=== PATIENT | male | born 1965 | race Caucasian/White ===

== ENCOUNTER 2020-07-21 16:46 | Emergency (ER) | payer BC, OTHER ==
[2020-07-21] MEDS ORDERED: Diphtheria,Pertussis(Acell),Tetanus Vaccine 0.5 ML Syringe IM ONE (17:16)
[2020-07-21] MEDS ORDERED: Bupivacaine 0.25% 10 ML SDV INJECT ONE (17:16)
--- NOTE | 2020-07-21 17:42 | EDM.PDOC ---
ED HPI GENERAL MEDICAL PROBLEM - General Chief Complaint: Laceration Stated Complaint: "CUT MY FINGER" Time Seen by Provider: 07/21/20 17:13 Source of Information: Reports: Patient History Limitations: Reports: No Limitations - History of Present Illness INITIAL COMMENTS - FREE TEXT/NARRATIVE: This patient is a 55 year old male that presents to the ER. Patient reports that today he was using his hands and bolt caught his right 2nd finger and cut it. Patient denies other injuries. Onset: Today Onset Date: 07/21/20 Duration: Hour(s): (1) Location: Reports: Upper Extremity, Right Severity: Mild Improves with: Reports: None Worsens with: Reports: None Associated Symptoms: Reports: No Other Symptoms Right Finger-Index Pain Score (Numeric/FACES): 1 - Related Data Allergies Allergy/AdvReac Type Severity Reaction Status Date / Time Sulfa (Sulfonamide Allergy Hives Verified 07/21/20 17:55 Antibiotics) Home Meds: Home Meds Empagliflozin [Jardiance] 10 mg PO DAILY 07/21/20 [History] Levothyroxine 1 tab PO DAILY 07/21/20 [History] Liraglutide [Victoza] 0.6 injection SUBCUT DAILY 07/21/20 [History] Moexipril HCl [Moexipril] 15 mg PO DAILY 07/21/20 [History] Sildenafil [Revatio] 20 mg PO TID 07/21/20 [History] metFORMIN HCl [Metformin HCl ER] 500 mg PO DAILY 07/21/20 [History] ED ROS GENERAL - Review of Systems Review Of Systems: See Below Constitutional: Reports: No Symptoms HEENT: Reports: No Symptoms Respiratory: Reports: No Symptoms Cardiovascular: Reports: No Symptoms Musculoskeletal: Reports: No Symptoms Skin: Reports: Wound (laceration ringer) Neurological: Reports: No Symptoms Psychiatric: Reports: No Symptoms Hematologic/Lymphatic: Reports: No Symptoms ED EXAM, SKIN/RASH Exam: See Below Exam Limited By: No Limitations General Appearance: Alert, WD/WN, No Apparent Distress Head: Atraumatic, Normocephalic Neck: Normal Inspection Respiratory/Chest: No Respiratory Distress, Lungs Clear Cardiovascular: Normal Peripheral Pulses, Regular Rate, Rhythm Peripheral Pulses: 2+: Radial (L), Radial (R) Extremities: Normal Range of Motion, Non-Tender, No Pedal Edema, Normal Capillary Refill Neurological: Alert, Oriented Psychiatric: Normal Affect, Normal Mood Skin: Warm, Dry, Normal Color, No Rash, Wound/Incision (laceration distal tip of right 2nd finger) Location, Skin: Upper Extremity, Right ED SKIN PROCEDURES - Laceration/Wound Repair Right Distal Digit - 2nd (Index) Appearance: Superficial Distal NVT: Neuro & Vascular Intact, No Tendon Injury Anesthetic Type: Local Local Anesthesia - Lidocaine (Xylocaine): 1% Plain (local: achieved) Local Anesthesia - Bupivicaine (Marcaine): 0.25% Plain (block: mildly achieved) Local Anesthetic Volume: 1cc Skin Prep: Chlorhexidine (Hibiciens) Saline Irrigation (cc's): 50 Exploration/Debridement/Repair: Wound Explored, In a Bloodless Field, Explored to Base, Moderate Debridement, No Foreign Material Found, Wound Margins Revised Closed with: Sutures Lac/Wound length In cm: 1 Suture Size: 5-0 # of Sutures: 2 Tetanus Status Addressed: Yes Complications: No Course - Orders/Labs/Meds Orders: Active Orders 24 hr Category Date Time Status Vaccines to be Administered [RC] PER UNIT ROUTINE Care 07/21/20 17:17 Active Meds: Medications Discontinued Medications Generic Name Dose Route Start Last Admin Trade Name Hollandq PRN Reason Stop Dose Admin Bupivacaine HCl 10 ml 07/21/20 17:16 07/21/20 18:19 Sensorcaine-Mpf 0.25% INJECT 07/21/20 17:17 10 ml ONETIME ONE Administration Diphtheria/Tetanus/Acell Pertussis 0.5 ml 07/21/20 17:16 07/21/20 18:10 Adacel IM 07/21/20 17:17 0.5 ml .ONCE ONE Administration Lidocaine HCl 5 ml 07/21/20 17:16 07/21/20 18:18 Xylocaine-Mpf 1% INJECT 07/21/20 17:17 5 ml ONETIME ONE Administration Neomycin/Polymyxin/Bacitracin 1 each 07/21/20 18:33 Triple Antibiotic Oint TOP 07/21/20 18:34 ONETIME ONE Departure - Departure Time of Disposition: 18:35 Disposition: Home, Self-Care 01 Condition: Good Clinical Impression: Laceration - Discharge Information *PRESCRIPTION DRUG MONITORING PROGRAM REVIEWED*: Not Applicable *COPY OF PRESCRIPTION DRUG MONITORING REPORT IN PATIENT DOM: Not Applicable Instructions: Laceration Care, Adult, [id number], Sutures, Santiago, or Adhesive Wound Closure, [id number] Forms: ED Department Discharge Additional Instructions: Followup with primary care provider in about 5 days for suture removal Return to the ER for worsening of condition or any emergent concerns such as fever, vomiting, drainage at site, redness, infection Wash the area gently twice a day with soap and water, rinse, pat dry. Keep clean Tylenol or Motrin for pain - My Orders Last 24 Hours: My Active Orders 07/21/20 17:17 Vaccines to be Administered [RC] PER UNIT ROUTINE - Assessment/Plan Last 24 Hours: My Active Orders 07/21/20 17:17 Vaccines to be Administered [RC] PER UNIT ROUTINE Plan: PLEASE SEE RN NOTE FOR PFSH
[2020-07-21] MEDS ORDERED: Bacitracin/Neomycin/Polymyxin B Oint 0.9 GM U/D Packet TOP ONE (18:33)
== END 2020-07-21 18:56 | disposition home or self-care (01) ==
LOC: CC.ED 16:46
DX: S61.210A Laceration without foreign body of right index finger without damage to nail, initial encounter (principal); Z88.2 Allergy status to sulfonamides; Z23 Encounter for immunization; W26.8XXA Contact with other sharp object(s), not elsewhere classified, initial encounter
CPT/HCPCS: 12001; 90471; 90715; 99282-25; J2001; J3490